=== PATIENT | female | born 1985 | race Caucasian/White ===

== ENCOUNTER 2017-05-17 11:16 | Emergency (ER) | payer OTHER ==
[2017-05-17 11:39] VITALS: BP 139/88
--- NOTE | 2017-05-17 12:13 | UC ---
Santiago Alvarez Jason[facility] 05/17/17 at 1200 . FLU HPI - HPI Summary HPI Summary: In Room Note: This patient is a 31 year old F presenting to [facility] with a chief complaint of flu like symptoms since 2 days ago. The patient states that she began experiencing cough, congestion, and diarrhea 2 days ago. The patient rates the pain 6/10 in severity. Symptoms aggravated by nothing. Symptoms alleviated by nothing. Patient reports productive cough, rhinorrhea, diarrhea, mild diffuse abdominal discomfort, and loss of appetite. Patient denies sinus discomfort, ear discomfort, chest pain, or dysuria. Physicians Note: Vistal signs stable. Temperature is 97.9. BP is 139/88. Visit history shows a number of URI visits. Nurses Note: Pt c/o bodyaches, phlegm, chest heaviness, cough, runny nose - states sx started last Thursday05/15/17. Pt states also having diarrhea, started Thursday, had 4-5 instances yesterday, 1 instance today - states poor appetite. - History of Current Complaint Chief Complaint: UCGeneralIllness Stated Complaint: COUGH,CONGESTED Time Seen by Provider: 05/17/17 11:34 Hx Obtained From: Patient Hx Last Menstrual Period: had 8 week period ended 2 weeks ago Onset/Duration: Gradual Onset, Lasting Days - since 2 days ago, Still Present Pain Intensity: 6 Pain Scale Used: 0-10 Numeric Associated Signs & Symptoms: Positive: Cough, Nasal Congestion, Diarrhea - Allergy/Home Medications Allergies/Adverse Reactions: Allergies Allergy/AdvReac Type Severity Reaction Status Date / Time No Known Allergies Allergy Verified 05/17/17 11:29 Home Medications: Home Medications Dm/PE/Acetaminophen/Chlorphenr [Pepper-Parker Plus Cold &] 1 cap PO ONCE [History Confirmed 05/17/17] PMH/Surg Hx/FS Hx/Imm Hx Previously Healthy: Yes Endocrine History: Other Other Endocrine History: negative DM Respiratory History: Other Other Respiratory History: negative pneumonia Other History Of: Negative For: HIV, Hepatitis B, Hepatitis C, Anticoagulant Therapy - Surgical History Surgical History: Yes Surgery Procedure, Year, and Place: 2 ,T&A,. precancerous skin resection - on back - Family History Known Family History: Positive: Other - breast cancer Negative: Cardiac Disease, Hypertension, Diabetes, Renal Disease - Social History Occupation: Employed Full-time Alcohol Use: Rare Substance Use Type: None Smoking Status (MU): Never Smoked Tobacco - Immunization History Most Recent Influenza Vaccination: fall 2015 Review of Systems ENT: Negative - ear discomfort, sinus discomfort, Other - rhinorrhea Respiratory: Cough - productive Cardiovascular: Negative - chest pain Gastrointestinal: Diarrhea, Other - loss of appetite Genitourinary: Negative - dysuria All Other Systems Reviewed And Are Negative: Yes Physical Exam - Summary Physical Exam Summary: Appearance: The patient is well-appearing, is in no pain distress, and is well- nourished. Eyes: Conjunctiva are clear. ENT: The hearing is grossly normal, the pharynx is normal, and the TMs are normal. There is no muffled or hoarse voice. Neck: The neck is supple and there is no lymphadenopathy. Respiratory: The chest is nontender. The lungs are clear, there are normal breath sounds, and there is no respiratory distress. Cardiovascular: Heart is regular rate and rhythm. There is no murmur. Abdomen: The abdomen is soft and nontender. There is no organomegaly. Hypertympanitic Bowel sounds: present Musculoskeletal: Strength is intact. The patient moves all extremities. Mild diffuse tenderness to palpation Neurological: The patient is alert. Psychological: The patient displays age appropriate behavior Skin: Negative for rashes Triage Information Reviewed: Yes Vital Signs: Initial Vital Signs Temp 97.9 F 05/17/17 11:31 Pulse 76 05/17/17 11:31 Resp 16 05/17/17 11:31 BP 139/88 05/17/17 11:31 Pulse Ox 98 05/17/17 11:31 Vital Signs Reviewed: Yes Flu Course/Dx - Course Course Of Treatment: Pt is a 31 year old female with congestion and diarrhea as well as myalgia. The differential is viral syndrome vs. pneumonia. My diagnosis is a viral syndrome. I discussed with the patient the need to be reevaluated should she experience an increase in temperature, pain, or SOB. Patient is Urgent/Emergent. BP elevated due to current condition w/o HTN in past medical history. Medications have been included in the original chart and reviewed. - Differential Dx/Diagnosis Provider Diagnoses: viral syndrome Discharge - Sign-Out/Discharge Documenting (check all that apply): Discharge - Discharge Plan Condition: Stable Disposition: HOME Patient Education Materials: Viral Syndrome (ED) Forms: *Work Release Referrals: Esteban Uribe NP [Primary Care Provider] - Additional Instructions: Your blood pressure reading today was 139/88, indicating HYPERTENSION/ PREHYPERTENSION. Follow-up with your primary care provider within 4 weeks for blood pressure readings and further evaluation PLEASE SEEK CARE AT THE EMERGENCY DEPARTMENT IF SYMPTOMS WORSEN OR IF NEW SYMPTOMS DEVELOP. FOLLOW UP WITH YOUR PRIMARY CARE PHYSICIAN. WE DISCUSSED: 1. There was no evidence of pneumonia. 2. Rest for the next 1-2 days. 3. Stay well hydrated with dilute gatorade (add half a bottle of water for each bottle of Gatorade) or other drink containing some electrolytes. 4. Re check at any time for increased pain, temperature, cough or new symptoms. 5. No work until May 22, 2017. - Billing Disposition and Condition Condition: STABLE Disposition: HOME The documentation as recorded by the Santiago bangura Jason accurately reflects the service I personally performed and the decisions made by , Jt Hare MD.
== END 2017-05-17 12:10 | disposition home or self-care (01) ==
LOC: UCEAST 11:16
DX: B34.9 Viral infection, unspecified (principal)
CPT/HCPCS: 99211; G0463

== ENCOUNTER 2017-06-12 11:08 | Emergency (ER) | payer OTHER ==
--- NOTE | 2017-06-12 11:27 | UC ---
FLU HPI - HPI Summary HPI Summary: Patient has been recently exposed to both RSV and influenza. Patient began with upper respiratory symptoms 4 days ago have been getting progressively worse over the week feels feverish but hasn't been running a temperature no nausea or vomiting has harsh cough body aches - History of Current Complaint Chief Complaint: UCRespiratory Stated Complaint: FLU SYMPTOMS Time Seen by Provider: 06/12/17 11:23 Hx Obtained From: Patient Hx Last Menstrual Period: had 8 week period ended 2 weeks ago ?: No Onset/Duration: Sudden Onset, Lasting Days - 4, Still Present Severity Currently: Moderate Severity Initially: Moderate Pain Scale Used: 0-10 Numeric Associated Signs & Symptoms: Positive: Fever, Myalgia, Cough, Nasal Congestion, Headache Related Hx: Possible Flu/Infectious Exposure - Allergy/Home Medications Allergies/Adverse Reactions: Allergies Allergy/AdvReac Type Severity Reaction Status Date / Time No Known Allergies Allergy Verified 05/17/17 11:29 Home Medications: Home Medications Guaifen/Phenyleph/Acetaminophn [Tylenol Cold Head Congest Cplt] 1 each PO [History] PMH/Surg Hx/FS Hx/Imm Hx Previously Healthy: Yes Other History Of: Negative For: HIV, Hepatitis B, Hepatitis C, Anticoagulant Therapy - Surgical History Surgical History: Yes Surgery Procedure, Year, and Place: 2 ,T&A,. precancerous skin resection - on back - Family History Known Family History: Positive: Other - breast cancer Negative: Cardiac Disease, Hypertension, Diabetes, Renal Disease - Social History Occupation: Employed Full-time Lives: With Family Alcohol Use: Rare Substance Use Type: None Smoking Status (MU): Never Smoked Tobacco - Immunization History Most Recent Influenza Vaccination: fall 2015 Review of Systems Constitutional: Fever - subjective, Chills, Fatigue Skin: Negative Eyes: Negative ENT: Negative Respiratory: Cough Cardiovascular: Negative Gastrointestinal: Negative Genitourinary: Negative Motor: Negative Neurovascular: Negative Musculoskeletal: Arthralgia, Myalgia Neurological: Negative Psychological: Negative Is Patient Immunocompromised?: No All Other Systems Reviewed And Are Negative: Yes Physical Exam Triage Information Reviewed: Yes Appearance: Well-Nourished, Ill-Appearing, Pain Distress Vital Signs Reviewed: Yes Eye Exam: Normal Eyes: Positive: Conjunctiva Clear ENT Exam: Normal ENT: Positive: Normal ENT inspection, Hearing grossly normal, Pharynx normal, TMs normal, Uvula midline. Negative: Nasal congestion, Tonsillar swelling, Tonsillar exudate, Trismus, Muffled voice, Hoarse voice, Dental tenderness Dental Exam: Normal Neck exam: Normal Neck: Positive: 1 Respiratory Exam: Normal Respiratory: Positive: Chest non-tender, Lungs clear, Normal breath sounds, No respiratory distress, No accessory muscle use Cardiovascular Exam: Normal Abdominal Exam: Normal Abdomen Description: Positive: Nontender, No Organomegaly, Soft. Negative: CVA Tenderness (R), CVA Tenderness (L) Bowel Sounds: Positive: Present Musculoskeletal Exam: Normal Neurological Exam: Normal Neurological: Positive: Alert, Muscle Tone Normal, Fatigued Psychological Exam: Normal Skin Exam: Normal Diagnostics - Laboratory Diagnostic Studies Completed/Ordered: Influenza B +, Influenza A - Flu Course/Dx - Course Course Of Treatment: Tylenol ibuprofen when necessary for body aches and fever, [id number] medications for symptom relief, increase fluids and rest follow up with PCP when necessary and follow-up blood pressure with PCP in the next 1-4 weeks - Differential Dx/Diagnosis Provider Diagnoses: Elevated blood pressure without diagnosis of hypertension, influenza B Discharge - Sign-Out/Discharge Documenting (check all that apply): Discharge - Discharge Plan Condition: Stable Disposition: HOME Prescriptions: guaiFENesin/CODIEN 100MG-10MG* [Robitussin AC 100Mg-10Mg*] 5 - 10 ml PO Q4H PRN #120 ml MDD 40ml PRN Reason: cough Patient Education Materials: Influenza (ED), Hypertension (ED) Forms: *Work Release Referrals: Esteban Uribe NP [Primary Care Provider] - 2 Weeks - Billing Disposition and Condition Condition: STABLE Disposition: HOME
[2017-06-12 11:30] VITALS: BP 140/101
== END 2017-06-12 12:00 | disposition home or self-care (01) ==
LOC: UCEAST 11:08
DX: J10.1 Influenza due to other identified influenza virus with other respiratory manifestations (principal); R03.0 Elevated blood-pressure reading, without diagnosis of hypertension
CPT/HCPCS: 87502; 99212; G0463